=== PATIENT | female | born 1985 | race Caucasian/White ===

== ENCOUNTER 2016-11-18 08:52 | Day surgery (SDC) | payer MEDICAID, OTHER ==
--- NOTE | 2016-11-17 07:52 | PDGENHP ---
History and Physical History and Physical: Assessment and Plan: 1. Endometriosis of pelvic peritoneum Sirena has laparoscopic proven endometriosis with remaining disease present. She has failed medical management. We reviewed all conservative and surgical options. She wishes to proceed with excision of all remaining endometriosis. This likely will involve excising both deep lesions on the uterosacral ligaments as well as evaluating the ovarian fossa's for endometriosis overlying both ureters. 2. Dysmenorrhea 3. Dyschezia Subjective: Patient ID: Sirena Smith is a 30 y.o. female who presents to [facility] for endometriosis. PRIYA Pack is a 30-year-old 0 woman who presents to discuss endometriosis. Her menses have always been moderately painful. However, about 2 years ago the pain increased and she developed dyspareunia. She has tried various control pills which provided minimal if any benefit. She also suffered from mood swings, depression, and weight gain while on the control pills. She then tried a Mirena IUD which helped reduce her symptoms slightly but again were not significant. In April of this year Dr. Malu Duncan in [place] performed laparoscopy. I have reviewed the operative note as well as the operative photos. She was found to have endometriosis on both uterosacral ligaments. I can also see some vesicular lesions in the posterior cul-de-sac closer to the cervix as well as possibly in the right ovarian fossa overlying the right ureter. She appears to have a deeper nodular lesion just lateral to the left uterosacral ligament near the cervix. The operative note indicates a biopsy was taken of the right uterosacral ligament lesion but no other lesions were excised. Postoperatively she has improved right lower quadrant pain. However she continues to have left lower quadrant pain as well as pain radiating to her low back. She only has spotting with her Mirena IUD. The left lower quadrant cramping has the same intensity as before surgery but now occurs more frequently. Ibuprofen does not help. Prior to using the Mirena, her pain would begin several days before her menstrual flow and last for several days. Now she typically will have the cramping pain anywhere from 7-10 days followed by several days break. This then repeats itself. She has some dyspareunia off and on. She does have dyschezia which is a cramping pain as if she needs to have a bowel movement. When she does have a bowel movement the pain becomes more intense without any immediate relief. She has no shortness of breath chest pain or shoulder pain. She is recently . She is self-employed selling fitness supplements and apparel. She and her are considering soon. PastMedicalHistory Past Medical History: Diagnosis Date Endometriosis PastSurgicalHistory Past Surgical History: Procedure Laterality Date PELVIC LAPAROSCOPY CURRENT MEDICATIONS: Current Outpatient Prescriptions Medication Sig BLUE-GREEN ALGAE, SPIRULINA, PO DOCOSAHEXANOIC ACID/EPA (FISH OIL PO) ERGOCALCIFEROL, VITAMIN D2, (VITAMIN D PO) EVENING PRIMROSE OIL (EVENING PRIMROSE PO) LACTOBACILLUS ACIDOPHILUS (PROBIOTIC PO) levonorgestrel (MIRENA) 20 mcg/24 hr (5 years) IUD 20 mcg by Intrauterine route continuous device. multivitamin (HEXAVITAMIN) per tablet Take 1 tablet by mouth daily. VITAMIN B COMPLEX PO No current facility-administered medications for this visit. ALLERGIES: Review of patient's allergies indicates no known allergies. I have reviewed, verified and agree with the past medical, surgical, , family, social and ROS history as documented by the RN today. Review of Systems Objective: Vital Signs: Visit Vitals BP 102/60 Pulse 68 Temp 36.7 C (98 F) (Temporal Artery) Resp 16 Ht 1.626 m (5' 4") Wt 63 kg (138 lb 12.8 oz) SpO2 97% BMI 23.82 kg/m2 Physical Exam Gen: This is an alert, well developed woman in no distress. Neuro: She moves all extremities. Psych: She is appropriate, oriented, with normal affect. Neck: No thyroid enlargement, adenopathy, or tenderness. Lungs: Clear to ascultation, no wheezes or rales. Heart: Regular rate and rhythm without obvious murmurs. Abdomen: Soft, non-tender, without guarding, rebound, or masses. Extremities: No edema or cyanosis. Pelvic: Normal external genitalia. Non-gaping introitus, vagina without discharge, adequately estrogenized, no significant prolapse. Cervix without lesions or discharge. Uterus normal sized. Adnexa non-tender without enlargement. She is tender along both uterosacral ligaments worse on the left than the right. I find no rectovaginal nodularity. She has mild to moderately reduced uterine mobility. The levator ani muscles are soft without any focal tenderness. DATA: I have reviewed patient's outside medical records. Summary findings include findings as noted above. TIME/COMMUNICATION: I personally spent a total of 60 minutes. Of that 45 minutes was counseling/ coordination of patient's care. See my note above for details. Ryley Lira MD Board Certified Female Pelvic Medicine and Reconstructive Surgery Director of Minimally Invasive Gynecologic Surgery, [facility] Minimally Invasive Gynecologic [facility] Designee
[2016-11-18] MEDS ORDERED: ceFAZolin 2 GM/DEXTROSE 100 ML IV ONE (09:04)
[2016-11-18] MEDS ORDERED: PHENAZOPYRIDINE HCL 100 MG TAB PO ONE (09:04)
[2016-11-18] MEDS ORDERED: LR 1,000 ML IV ONE (09:06)
[2016-11-18 09:23] VITALS: PULSE 62
[2016-11-18] MEDS ORDERED: BUPIVACAINE/EPI 0.5% 30 ML SDV ONE (09:52)
[2016-11-18] MEDS ORDERED: MIDAZOLAM 2 MG/2 ML VIAL IVP ONE (11:41)
--- NOTE | 2016-11-18 11:41 | PDANEPAE ---
ANE History of Present Illness 31 yo with pelvic pain ANE Past Medical History - Cardiovascular History Hx Hypertension: No Hx Arrhythmias: No Hx Chest Pain: No Hx Coronary Artery / Peripheral Vascular Disease: No Hx CHF / Valvular Disease: No Hx Palpitations: No - Pulmonary History Hx COPD: No Hx Asthma/Reactive Airway Disease: No Hx Recent Upper Respiratory Infection: No Hx Oxygen in Use at Home: No Hx Sleep Apnea: No Sleep Apnea Screening Result - Last Documented: Negative - Neurologic History Hx Cerebrovascular Accident: No Hx Seizures: No Hx Dementia: No - Endocrine History Hx Diabetes: No - Renal History Hx Renal Disorders: No - Liver History Hx Hepatic Disorders: No - Neurological & Psychiatric Hx Hx Neurological and Psychiatric Disorders: No - Cancer History Hx Cancer: No - Congenital Disorder History Hx Congenital Disorders: No - GI History Hx Gastrointestinal Disorders: No - Other Health History Other Health History: pain in low abd,back-occ leg pain due to endometriosis. Pain can last 3-4 per day. - Chronic Pain History Chronic Pain: No - Surgical History Prior Surgeries: diag laparoscopy ANE Review of Systems Review of systems is: negative - Exercise capacity METS (RN): 5 METS ANE Patient History - Allergies Allergies/Adverse Reactions: No Known Allergies Allergy (Unverified 11/13/16 14:14) - Home Medications Home Medications: Colace 11/13/16 [Last Taken 11/17/16 10:00] Herbals/Supplements -Info Only 11/18/16 [Last Taken 11/14/16 10:00] - NPO status NPO Since - Liquids (Date): 11/18/16 NPO Since - Liquids (Time): 07:20 NPO Since - Solids (Date): 11/17/16 NPO Since - Solids (Time): 20:30 - Smoking Hx Smoking Status: Never smoked - Alcohol Use Alcohol Use: Occasionally - Family Anes Hx Family Anes Hx: none ANE Labs/Vital Signs - Vital Signs Blood Pressure: 108/67 Heart Rate: 62 Respiratory Rate: 16 O2 Sat (%): 97 Height: 162.56 cm Weight: 61.235 kg ANE Physical Exam - Airway Neck exam: FROM Mallampati Score: Class 1 Mouth exam: normal dental/mouth exam - Pulmonary Pulmonary: no respiratory distress, clear to auscultation - Cardiovascular Cardiovascular: regular rate and rhythym - ASA Status ASA Status: I ANE Anesthesia Plan Anesthesia Plan: general endotracheal anesthesia
[2016-11-18] MEDS ORDERED: ONDANSETRON 4 MG/2 ML VIAL ONE (12:15)
[2016-11-18] MEDS ORDERED: ROCURONIUM 100 MG/10 ML VIAL ONE (12:15)
[2016-11-18] MEDS ORDERED: fentaNYL 100 MCG/2 ML INJ ONE ×4 (12:15→14:13)
[2016-11-18] MEDS ORDERED: PROPOFOL 200 MG/20 ML VIAL ONE (12:15)
[2016-11-18] MEDS ORDERED: DEXAMETHASONE 4 MG/ML VIAL ONE (12:15)
[2016-11-18] MEDS ORDERED: ONDANSETRON 4 MG/2 ML VIAL IVP PRN (14:11)
[2016-11-18] MEDS ORDERED: PROMETHAZINE HCL 25 MG/ML INJ IVP PRN (14:11)
[2016-11-18] MEDS ORDERED: NALOXONE HCL 0.4 MG/ML INJ IVP PRN (14:11)
[2016-11-18] MEDS ORDERED: HYDROCODONE/APAP 5/325 TAB PO PRN (14:11)
[2016-11-18] MEDS ORDERED: OXYCODONE/APAP 5/325 TAB PO PRN (14:11)
[2016-11-18] MEDS ORDERED: fentaNYL 100 MCG/2 ML INJ IVP PRN (14:11)
--- NOTE | 2016-11-18 14:13 | POSTANESTH ---
Post Anesthetic Evaluation Cardiovascular Status: Normal, Stable Respiratory Status: Normal, Stable Level of Consciousness/Mental Status: Can Participate in Eval, Alert and Oriented Pain Control: Adequate, Prn Tx Ordered Nausea/Vomiting Control: Adequate, Prn Tx Ordered Complications Possibly Related to Anesthesia: None Noted
[2016-11-18] MEDS ORDERED: HYDROmorphONE/DILAUDID 1 MG/ML SYR ONE (14:28)
[2016-11-18] MEDS: HYDROmorphONE/DILAUDID 1 MG/ML SYR IVP PRN ×3 (14:30→15:00)
[2016-11-18] MEDS ORDERED: OXYCODONE/APAP 5/325 TAB ONE (14:43)
[2016-11-18 15:27] VITALS: BP 118/65; RESP 16; O2SAT 95
[2016-11-18 16:17] VITALS: TEMP 97.7
--- NOTE | 2016-11-19 00:54 | GOP ---
[f rep st] OPERATIVE REPORT DATE OF OPERATION: 11/18/2016 SURGEON: Ryley Lira MD TUB PULLER: Mai Handley CFA. ANESTHESIA: General. PREOPERATIVE DIAGNOSIS: 1. Endometriosis. 2. Pelvic pain. 3. Dysmenorrhea. 4. Urinary urgency and frequency. POSTOPERATIVE DIAGNOSIS: 1. Endometriosis. 2. Pelvic pain. 3. Dysmenorrhea. 4. Urinary urgency and frequency. 5. Subserosal fibroid. PROCEDURE PERFORMED: 1. Robotic excision of extensive endometriosis in the posterior cul-de-sac, bilateral ovarian fossa e, as well as the posterior uterus with less in the anterior cul-de-sac. 2. Bilateral ureterolysis. 3. Excision of rectal lesion. 4. Bilateral ovarian-pexy. 5. Cystoscopy. 6. Laparoscopic myomectomy. FINDINGS: Endometriosis were seen along both uterosacral ligaments, both ovarian fossae overlying t he ureters, as well as the posterior cul-de-sac, most notably underneath the cervix, as well as the right pericolic gutter. She had several smaller vesicular lesions in the anterior cul-de-sac. She had endometriosis along the right posterolateral aspect of the uterine serosa and a subserosal katina l fibroid. The left tube and ovary were unremarkable. She had several small lesions of endometrios is on the right ovary. The endometriosis on the distal rectum was excised. This extended approximately 30% to 50% into the muscularis. The posterior cul-de-sac peritoneum was then incised, extending up to occlude the cerv ix. Because of the lesions overlying both her ureters and the ovarian fossae, a bilateral ureteroly sis was required. The peritoneum at the pelvic brims were excised. The ureters were gently dissect ed free. The ureters were lateralized and dissected off the overlying peritoneum and endometriosis all the way down to the bladder. Once this was accomplished, the entire ovarian fossa/peritoneum wa s completely excised. A bilateral ovarian-pexy was performed due to the cyclic pelvic pain. This w as accomplished by using 3-0 Vicryl Rapide suture to attach each ovary to their ipsilateral round li gaments. The anterior cul-de-sac endometriosis was then excised. This was followed by the lesions along the posterior serosal aspect of the uterus. A myomectomy was performed. The uterus remained hemostatic. The pelvis was then copiously irrigated with sterile saline, and hemostasis was present . The robot was then undocked. The fascia was closed with 0 Vicryl. The skin was closed with 4-0 Monocryl and surgical adhesive. Cystoscopy was then performed. Both ureters had vigorous jets of urine. There was no evidence of b ladder nor urethral injury seen. No obvious pathology was seen to explain the patient's urinary wesly quency, other than her peritoneal endometriosis overlying the bladder. Anesthesia was reversed and the patient taken to the PACU awake, in stable condition. SPECIMENS: 1. Pelvic peritoneum with endometriosis. 2. Uterine fibroid. 3. Rectal lesion. ESTIMATED BLOOD LOSS: Scant. DESCRIPTION OF PROCEDURE: The patient was taken to the operating room where she was identified. Ge neral anesthesia was administered and found to be adequate. She was placed in the lithotomy positio n and prepared and draped in normal sterile fashion. A Hulka tenaculum was placed in the uterus for manipulation. A Leal catheter was then placed. A 1 cm infraumbilical incision was made through her prior surgical scar. The Veress needle with the CO2 gas flowing was advanced into the peritoneal cavity. The abdomen was then insufflated with car bon dioxide gas. The 12 mm trocar, followed by the laparoscope, was then inserted. The upper abdom en was examined. There was no evidence of endometriosis on either diaphragm, liver, gallbladder, or stomach. Two lateral ports were placed on the right and one on the left under direct visualization . She then was placed in Trendelenburg position and the da Deborah robot docked on the left side. Th e instruments were then brought into the abdominal cavity under direct visualization. COMPLICATIONS: None. /[id number]/MODL
== END 2016-11-18 16:00 | disposition home or self-care (01) ==
LOC: FSGY 08:52
PROVIDERS: ATTEND Obstetrics & Gynecology
DX: N80.3 Endometriosis of pelvic peritoneum (principal); N94.6 Dysmenorrhea, unspecified; D25.2 Subserosal leiomyoma of uterus; K59.00 Constipation, unspecified; R39.15 Urgency of urination; R35.0 Frequency of micturition
CPT/HCPCS: 58662; C1765; J0690; J1100; J1170; J2250; J2405; J2704; J3010